=== PATIENT | female | born 1940 | race Caucasian/White ===

== ENCOUNTER 2021-01-14 14:53 | Inpatient (IN) ==
[2021-01-14] MEDS ORDERED: MORPHINE 2 MG/1 ML SYRINGE IV STA (16:02)
[2021-01-14] MEDS ORDERED: ONDANSETRON 4 MG/2 ML VIAL IV STA (16:02)
[2021-01-14] MEDS ORDERED: ONDANSETRON 4 MG/2 ML VIAL IV PRN (16:08)
[2021-01-14] MEDS ORDERED: MORPHINE 2 MG/1 ML SYRINGE IV PRN (16:08)
[2021-01-14] MEDS ORDERED: cloNIDine 0.1 MG TABLET PO PRN (16:13)
[2021-01-14 16:40] LABS: Basophils % 0.2 % (0.0-0.8); Eosinophils % 0.3 % (0.00-10.9); Hematocrit 42.3 VOL% (35.7-47.0); Hemoglobin 13.3 GM/DL (12.0-16.0); Immature Granulocytes % 0.6 %; Immature Granulocytes Absolute 0.06 #; Lymphocytes # 0.6 10*3/uL (1.4-4.0); Lymphocytes % 5.7 % (21.3-54.2); Mean Corpuscular HGB Conc 31.4 GM/DL (32-36); Mean Corpuscular Volume 101.4 FL (87-102); Mean Platelet Volume 9.2 FL (9.6-12.0); Monocytes % 4.6 % (1.7-12.7); Neutrophils % 88.6 % (38.7-73.9); Platelet Count 181 T/CUMM (130-400); Red Blood Count 4.17 MC/CUMM (3.8-5.5); Red Cell Distribution Width 13.4 % (9.3-17.3); White Blood Count 9.8 T/CUMM (4-12)
[2021-01-14 16:51] LABS: PT Patient Result 10.9 SECS (10.5-12.0); Partial Thromboplastin Time 26.4 SECS (23.9-33.8)
[2021-01-14 16:57] LABS: Calcium 9.1 MG/DL (8.5-10.1); Potassium 4.1 MMOL/L (3.5-5.1)
[2021-01-14] MEDS: SODIUM CHLORIDE 0.45% 1,000 ML IV SCH (18:35)
[2021-01-14] MEDS: MAGNESIUM OXIDE 400 MG TABLET PO SCH (21:57)
[2021-01-14] MEDS: MELATONIN 3 MG TABLET PO PRN (21:57)
[2021-01-14] MEDS: DOCUSATE SODIUM 100 MG CAPSULE PO SCH (21:57)
[2021-01-14] MEDS: DILTIAZEM CD 240 MG CAPSULE PO SCH (21:57)
[2021-01-14] MEDS: ASPIRIN EC 81 MG TABLET PO SCH (21:57)
[2021-01-14] MEDS: SIMVASTATIN 10 MG TABLET PO SCH (21:57)
[2021-01-14] MEDS: LATANOPROST 0.005% OPH SOLN 2.5 ML BOTTLE BOTH EYES SCH (21:58)
[2021-01-14] MEDS: BRIMONIDINE/TIMOLOL OPH SOLN 5 ML BOTTLE BOTH EYES SCH (21:58)
[2021-01-14] MEDS: ENOXAPARIN 30 MG/0.3 ML SYRINGE SUBCUT SCH (22:02)
[2021-01-15] MEDS: SODIUM CHLORIDE 0.45% 1,000 ML IV SCH ×3 (05:46→18:39)
[2021-01-15] MEDS: LEVOTHYROXINE 88 MCG TABLET PO SCH (07:36)
[2021-01-15] MEDS ORDERED: FAMOTIDINE 20 MG TABLET PO PRN (09:18)
[2021-01-15] MEDS: MAGNESIUM OXIDE 400 MG TABLET PO SCH ×2 (09:34→22:08)
[2021-01-15] MEDS: DOCUSATE SODIUM 100 MG CAPSULE PO SCH ×2 (09:34→22:08)
[2021-01-15] MEDS: CARBIDOPA/LEVODOPA 25-100 MG TABLET PO SCH ×4 (09:34→22:06)
[2021-01-15] MEDS: PANTOPRAZOLE 40 MG TABLET PO SCH (09:34)
[2021-01-15] MEDS: CYANOCOBALAMIN 500 MCG TABLET PO SCH (09:34)
[2021-01-15] MEDS: MULTIVITAMIN (CENTRUM) TABLET PO SCH (09:34)
[2021-01-15] MEDS: MELOXICAM 7.5 MG TABLET PO SCH (09:34)
[2021-01-15] MEDS: amLODIPine 10 MG TABLET PO SCH (09:34)
[2021-01-15] MEDS: FUROSEMIDE 20 MG TABLET PO SCH (09:34)
[2021-01-15] MEDS: BRIMONIDINE/TIMOLOL OPH SOLN 5 ML BOTTLE BOTH EYES SCH ×2 (09:35→22:11)
[2021-01-15] MEDS: NEBIVOLOL 10 MG TABLET PO SCH (09:35)
[2021-01-15] MEDS: ACETAMINOPHEN 325 MG TABLET PO PRN (13:47)
[2021-01-15] MEDS: DILTIAZEM CD 240 MG CAPSULE PO SCH (22:04)
[2021-01-15] MEDS: SIMVASTATIN 10 MG TABLET PO SCH (22:08)
[2021-01-15] MEDS: ASPIRIN EC 81 MG TABLET PO SCH (22:09)
[2021-01-15] MEDS: ENOXAPARIN 30 MG/0.3 ML SYRINGE SUBCUT SCH (22:10)
[2021-01-15] MEDS: LATANOPROST 0.005% OPH SOLN 2.5 ML BOTTLE BOTH EYES SCH (22:11)
[2021-01-16] MEDS: LEVOTHYROXINE 88 MCG TABLET PO SCH (06:17)
[2021-01-16] MEDS: SODIUM CHLORIDE 0.45% 1,000 ML IV SCH ×3 (06:33→18:48)
[2021-01-16 06:59] LABS: Basophils % 0.4 % (0.0-0.8); Eosinophils # 0.2 10*3/uL (0.0-0.87); Eosinophils % 3.3 % (0.00-10.9); Hematocrit 30.1 VOL% (35.7-47.0); Immature Granulocytes % 0.5 %; Immature Granulocytes Absolute 0.03 #; Lymphocytes # 1.1 10*3/uL (1.4-4.0); Lymphocytes % 19.8 % (21.3-54.2); Mean Corpuscular HGB Conc 31.9 GM/DL (32-36); Mean Corpuscular Volume 100.3 FL (87-102); Mean Platelet Volume 9.8 FL (9.6-12.0); Monocytes % 10.3 % (1.7-12.7); Neutrophils % 65.7 % (38.7-73.9); Red Cell Distribution Width 13.3 % (9.3-17.3)
[2021-01-16 07:01] LABS: Hemoglobin 9.6 GM/DL (12.0-16.0); Platelet Count 125 T/CUMM (130-400); White Blood Count 5.5 T/CUMM (4-12)
[2021-01-16] MEDS: CYANOCOBALAMIN 500 MCG TABLET PO SCH (09:06)
[2021-01-16] MEDS: DOCUSATE SODIUM 100 MG CAPSULE PO SCH ×2 (09:06→21:52)
[2021-01-16] MEDS: FUROSEMIDE 20 MG TABLET PO SCH (09:06)
[2021-01-16] MEDS: PANTOPRAZOLE 40 MG TABLET PO SCH (09:06)
[2021-01-16] MEDS: amLODIPine 10 MG TABLET PO SCH (09:06)
[2021-01-16] MEDS: MELOXICAM 7.5 MG TABLET PO SCH (09:07)
[2021-01-16] MEDS: MAGNESIUM OXIDE 400 MG TABLET PO SCH ×2 (09:07→21:52)
[2021-01-16] MEDS: NEBIVOLOL 10 MG TABLET PO SCH (09:07)
[2021-01-16] MEDS: MULTIVITAMIN (CENTRUM) TABLET PO SCH (09:07)
[2021-01-16] MEDS: CLOPIDOGREL 75 MG TABLET PO SCH (09:07)
[2021-01-16] MEDS: CARBIDOPA/LEVODOPA 25-100 MG TABLET PO SCH ×4 (09:07→21:51)
[2021-01-16] MEDS: BRIMONIDINE/TIMOLOL OPH SOLN 5 ML BOTTLE BOTH EYES SCH ×2 (09:07→21:50)
[2021-01-16] MEDS: ACETAMINOPHEN 325 MG TABLET PO PRN (12:12)
[2021-01-16] MEDS: LATANOPROST 0.005% OPH SOLN 2.5 ML BOTTLE BOTH EYES SCH (21:50)
[2021-01-16] MEDS: SIMVASTATIN 10 MG TABLET PO SCH (21:51)
[2021-01-16] MEDS: ASPIRIN EC 81 MG TABLET PO SCH (21:52)
[2021-01-16] MEDS: MELATONIN 3 MG TABLET PO PRN (21:52)
[2021-01-16] MEDS: DILTIAZEM CD 240 MG CAPSULE PO SCH (21:52)
[2021-01-16] MEDS: ENOXAPARIN 30 MG/0.3 ML SYRINGE SUBCUT SCH (21:53)
[2021-01-17] MEDS: ACETAMINOPHEN 325 MG TABLET PO PRN (02:00)
[2021-01-17] MEDS: LEVOTHYROXINE 88 MCG TABLET PO SCH (06:08)
[2021-01-17] MEDS: SODIUM CHLORIDE 0.45% 1,000 ML IV SCH (06:12)
[2021-01-17 08:15] LABS: Basophils % 0.3 % (0.0-0.8); Eosinophils # 0.2 10*3/uL (0.0-0.87); Eosinophils % 3.2 % (0.00-10.9); Hematocrit 33.1 VOL% (35.7-47.0); Hemoglobin 10.4 GM/DL (12.0-16.0); Immature Granulocytes % 0.5 %; Immature Granulocytes Absolute 0.03 #; Lymphocytes # 0.9 10*3/uL (1.4-4.0); Lymphocytes % 14.4 % (21.3-54.2); Mean Corpuscular HGB Conc 31.4 GM/DL (32-36); Mean Corpuscular Volume 101.5 FL (87-102); Mean Platelet Volume 9.8 FL (9.6-12.0); Monocytes % 8.8 % (1.7-12.7); Neutrophils % 72.8 % (38.7-73.9); Platelet Count 157 T/CUMM (130-400); Red Blood Count 3.26 MC/CUMM (3.8-5.5); Red Cell Distribution Width 13.2 % (9.3-17.3); White Blood Count 5.9 T/CUMM (4-12)
[2021-01-17 08:41] LABS: Band Neutrophils 1 % (0-10); Eosinophils 3 % (0-10); Hypochromasia 1+; Lymphocytes 13 % (20-55); Macrocytosis Slight; Segmented Neutrophils 79 % (50-85); Total Cells Counted 100
[2021-01-17 08:42] LABS: Platelet Estimate Adequate
[2021-01-17] MEDS ORDERED: TUBERCULIN SKIN TEST 0.1 ML SYRINGE INTRADERM ONE (10:00)
[2021-01-17] MEDS: MULTIVITAMIN (CENTRUM) TABLET PO SCH (10:16)
[2021-01-17] MEDS: NEBIVOLOL 10 MG TABLET PO SCH (10:16)
[2021-01-17] MEDS: MELOXICAM 7.5 MG TABLET PO SCH (10:17)
[2021-01-17] MEDS: CARBIDOPA/LEVODOPA 25-100 MG TABLET PO SCH ×4 (10:17→20:40)
[2021-01-17] MEDS: MAGNESIUM OXIDE 400 MG TABLET PO SCH ×2 (10:17→20:40)
[2021-01-17] MEDS: FUROSEMIDE 20 MG TABLET PO SCH (10:17)
[2021-01-17] MEDS: PANTOPRAZOLE 40 MG TABLET PO SCH (10:17)
[2021-01-17] MEDS: BRIMONIDINE/TIMOLOL OPH SOLN 5 ML BOTTLE BOTH EYES SCH ×2 (10:17→20:40)
[2021-01-17] MEDS: DOCUSATE SODIUM 100 MG CAPSULE PO SCH ×2 (10:17→20:40)
[2021-01-17] MEDS: CYANOCOBALAMIN 500 MCG TABLET PO SCH (10:17)
[2021-01-17] MEDS: amLODIPine 10 MG TABLET PO SCH (10:17)
[2021-01-17] MEDS: DILTIAZEM CD 240 MG CAPSULE PO SCH (20:39)
[2021-01-17] MEDS: ASPIRIN EC 81 MG TABLET PO SCH (20:40)
[2021-01-17] MEDS: SIMVASTATIN 10 MG TABLET PO SCH (20:40)
[2021-01-17] MEDS: MELATONIN 3 MG TABLET PO PRN (20:40)
[2021-01-17] MEDS: LATANOPROST 0.005% OPH SOLN 2.5 ML BOTTLE BOTH EYES SCH (20:41)
[2021-01-17] MEDS: ENOXAPARIN 30 MG/0.3 ML SYRINGE SUBCUT SCH (20:41)
[2021-01-18] MEDS: LEVOTHYROXINE 88 MCG TABLET PO SCH (05:36)
[2021-01-18] MEDS: CLOPIDOGREL 75 MG TABLET PO SCH (09:25)
[2021-01-18] MEDS: MULTIVITAMIN (CENTRUM) TABLET PO SCH (09:25)
[2021-01-18] MEDS: CYANOCOBALAMIN 500 MCG TABLET PO SCH (09:25)
[2021-01-18] MEDS: NEBIVOLOL 10 MG TABLET PO SCH (09:25)
[2021-01-18] MEDS: DOCUSATE SODIUM 100 MG CAPSULE PO SCH (09:25)
[2021-01-18] MEDS: MAGNESIUM OXIDE 400 MG TABLET PO SCH (09:25)
[2021-01-18] MEDS: FUROSEMIDE 20 MG TABLET PO SCH (09:26)
[2021-01-18] MEDS: MELOXICAM 7.5 MG TABLET PO SCH (09:26)
[2021-01-18] MEDS: CARBIDOPA/LEVODOPA 25-100 MG TABLET PO SCH (09:26)
[2021-01-18] MEDS: PANTOPRAZOLE 40 MG TABLET PO SCH (09:26)
[2021-01-18] MEDS: amLODIPine 10 MG TABLET PO SCH (09:26)
[2021-01-18] MEDS: BRIMONIDINE/TIMOLOL OPH SOLN 5 ML BOTTLE BOTH EYES SCH (10:31)
[2021-01-18 11:07] VITALS: BP 137/40
[2021-01-21] MEDS ORDERED: ERGOCALCIFEROL 50,000 UNIT CAPSULE PO SCH (09:00)
== END 2021-01-18 11:27 | disposition swing bed (61) | DRG 563 ==
LOC: EDBD → EDUNIT# → N.ED 14:53 → N.EDINP 14:53 → N.3E 18:41
PROVIDERS: ADMIT Family Medicine; ATTEND Family Medicine

== ENCOUNTER 2021-02-08 11:01 | Inpatient (IN) ==
[2021-02-08] MEDS ORDERED: TRANEXAMIC ACID 1,000 MG in SODIUM CHLORIDE 0.9% 100 ML IV ONE (11:50)
[2021-02-08 12:34] LABS: Basophils # 0.1 10*3/uL (0.0-0.2); Basophils % 0.5 % (0.0-0.8); Eosinophils # 0.4 10*3/uL (0.0-0.87); Eosinophils % 3.7 % (0.00-10.9); Lymphocytes # 1.3 10*3/uL (1.4-4.0); Lymphocytes % 13.2 % (21.3-54.2); Mean Corpuscular HGB Conc 30.8 GM/DL (32-36); Mean Corpuscular Volume 101.2 FL (87-102); Mean Platelet Volume 8.9 FL (9.6-12.0); Monocytes % 8.6 % (1.7-12.7); Platelet Count 302 T/CUMM (130-400); Red Blood Count 2.57 MC/CUMM (3.8-5.5); Red Cell Distribution Width 14.6 % (9.3-17.3); White Blood Count 9.8 T/CUMM (4-12)
[2021-02-08 12:43] LABS: PT Patient Result 11.4 SECS (10.5-12.0); Partial Thromboplastin Time 27.1 SECS (23.9-33.8)
[2021-02-08 13:05] LABS: Calcium 7.7 MG/DL (8.5-10.1); Potassium 4.6 MMOL/L (3.5-5.1)
[2021-02-08] MEDS ORDERED: MORPHINE 2 MG/1 ML SYRINGE IV PRN (13:50)
[2021-02-08] MEDS ORDERED: ONDANSETRON 4 MG/2 ML VIAL IV PRN (13:50)
[2021-02-08] MEDS ORDERED: ALBUTEROL 2.5 MG/3 ML NEB RESP TX PRN (13:50)
[2021-02-08 15:07] LABS: Hematocrit 23.9 VOL% (35.7-47.0); Hemoglobin 7.4 GM/DL (12.0-16.0)
[2021-02-08] MEDS: PANTOPRAZOLE 40 MG VIAL IV SCH ×2 (15:12→21:30)
[2021-02-08] MEDS: LACTATED RINGERS 1,000 ML IV SCH ×2 (17:12→17:33)
[2021-02-08 20:12] LABS: Hemoglobin 7.5 GM/DL (12.0-16.0)
[2021-02-09 02:01] LABS: Hematocrit 18.4 VOL% (35.7-47.0)
[2021-02-09 02:14] LABS: Hemoglobin 5.7 GM/DL (12.0-16.0)
[2021-02-09] MEDS ORDERED: SODIUM CHLORIDE 0.9% 1,000 ML IV PRN (02:20)
[2021-02-09] MEDS: LACTATED RINGERS 1,000 ML IV SCH ×3 (02:28→21:13)
[2021-02-09] MEDS: PANTOPRAZOLE 40 MG VIAL IV SCH ×2 (08:39→21:08)
[2021-02-09 09:01] LABS: Basophils % 0.4 % (0.0-0.8); Eosinophils # 0.3 10*3/uL (0.0-0.87); Eosinophils % 2.9 % (0.00-10.9); Hematocrit 30.2 VOL% (35.7-47.0); Immature Granulocytes % 1.2 %; Immature Granulocytes Absolute 0.12 #; Lymphocytes # 1.3 10*3/uL (1.4-4.0); Lymphocytes % 12.6 % (21.3-54.2); Mean Corpuscular HGB Conc 32.5 GM/DL (32-36); Mean Platelet Volume 8.9 FL (9.6-12.0); NRBC # 0.02 10*3/uL; Neutrophils % 74.9 % (38.7-73.9); Platelet Count 218 T/CUMM (130-400); White Blood Count 10.4 T/CUMM (4-12)
[2021-02-09 09:10] LABS: Hemoglobin 9.8 GM/DL (12.0-16.0); Red Blood Count 3.32 MC/CUMM (3.8-5.5)
[2021-02-09 09:40] LABS: Alanine Aminotransferase < 6 U/L (13-56); Albumin 2.1 G/DL (3.4-5.0); Alkaline Phosphatase 119 U/L (45-117); Aspartate Amino Transferase 10 U/L (0-37); Blood Urea Nitrogen 38 MG/DL (7-18); Calcium 7.6 MG/DL (8.5-10.1); Carbon Dioxide 22 MMOL/L (21-32); Estimated Glom Filtration Rate 44 ML/MIN; Glucose 106 MG/DL (74-106); Osmolality,Calculated 281.8 MOS/KG (273-304); Potassium 4.2 MMOL/L (3.5-5.1); Sodium 137 MMOL/L (136-145); Total Protein 5.2 G/DL (6.4-8.2)
[2021-02-09] MEDS: NEBIVOLOL 10 MG TABLET PO SCH (10:43)
[2021-02-09] MEDS: CARBIDOPA/LEVODOPA 25-100 MG TABLET PO SCH ×3 (14:07→21:07)
[2021-02-09 14:14] LABS: Hematocrit 28.2 VOL% (35.7-47.0); Hemoglobin 9.2 GM/DL (12.0-16.0)
[2021-02-09 19:56] LABS: Hemoglobin 8.5 GM/DL (12.0-16.0)
[2021-02-09] MEDS ORDERED: MELATONIN 3 MG TABLET PO PRN (20:00)
[2021-02-10 02:39] LABS: Basophils % 0.4 % (0.0-0.8); Eosinophils # 0.2 10*3/uL (0.0-0.87); Eosinophils % 2.1 % (0.00-10.9); Hematocrit 27.9 VOL% (35.7-47.0); Hemoglobin 9.1 GM/DL (12.0-16.0); Immature Granulocytes % 1.5 %; Immature Granulocytes Absolute 0.16 #; Lymphocytes # 1.1 10*3/uL (1.4-4.0); Lymphocytes % 9.7 % (21.3-54.2); Mean Corpuscular HGB Conc 32.6 GM/DL (32-36); Mean Corpuscular Volume 91.5 FL (87-102); Mean Platelet Volume 8.6 FL (9.6-12.0); Monocytes % 7.9 % (1.7-12.7); NRBC # 0.03 10*3/uL; Neutrophils % 78.4 % (38.7-73.9); Platelet Count 180 T/CUMM (130-400); Red Blood Count 3.05 MC/CUMM (3.8-5.5); Red Cell Distribution Width 19.1 % (9.3-17.3); White Blood Count 10.8 T/CUMM (4-12)
[2021-02-10 03:07] LABS: Alanine Aminotransferase < 6 U/L (13-56); Alkaline Phosphatase 117 U/L (45-117); Aspartate Amino Transferase 10 U/L (0-37); Blood Urea Nitrogen 29 MG/DL (7-18); Calcium 7.9 MG/DL (8.5-10.1); Carbon Dioxide 23 MMOL/L (21-32); Estimated Glom Filtration Rate 62 ML/MIN; Glucose 98 MG/DL (74-106); Osmolality,Calculated 280.7 MOS/KG (273-304); Sodium 138 MMOL/L (136-145); Total Protein 4.9 G/DL (6.4-8.2)
[2021-02-10] MEDS ORDERED: SODIUM PHOSPHATE ENEMA 133 ML BOTTLE RECTAL ONE (06:00)
[2021-02-10] MEDS ORDERED: ONDANSETRON 4 MG/2 ML VIAL ONE (07:56)
[2021-02-10] MEDS: LACTATED RINGERS 1,000 ML IV SCH (07:58)
[2021-02-10] MEDS ORDERED: propofoL 200 MG/20 ML VIAL IV ONE (08:24)
[2021-02-10] MEDS ORDERED: ETOMIDATE 20 MG/10 ML VIAL IV ONE (08:24)
[2021-02-10] MEDS ORDERED: LIDOCAINE 2% 5 ML VIAL ONE (08:24)
[2021-02-10] MEDS: NEBIVOLOL 10 MG TABLET PO SCH (09:38)
[2021-02-10] MEDS: CARBIDOPA/LEVODOPA 25-100 MG TABLET PO SCH ×4 (09:39→21:10)
[2021-02-10] MEDS: PANTOPRAZOLE 40 MG VIAL IV SCH ×2 (09:39→21:21)
[2021-02-10 10:09] LABS: Hematocrit 29.7 VOL% (35.7-47.0); Hemoglobin 9.6 GM/DL (12.0-16.0)
[2021-02-10] MEDS ORDERED: ACETAMINOPHEN 325 MG TABLET PO PRN (15:28)
[2021-02-10] MEDS ORDERED: CYANOCOBALAMIN 1000 MCG/1 ML VIAL IM SCH (15:30)
[2021-02-10 15:48] LABS: % Iron Saturation 7.9 % (18-50)
[2021-02-10 15:54] LABS: Folate 14.18 NG/ML (5.38-24.0)
[2021-02-10] MEDS ORDERED: CARBIDOPA/LEVODOPA 25-100 MG TABLET PO SCH (17:00)
[2021-02-10] MEDS ORDERED: DILTIAZEM CD 240 MG CAPSULE PO SCH (21:00)
[2021-02-10] MEDS ORDERED: SIMVASTATIN 10 MG TABLET PO SCH (21:00)
[2021-02-10] MEDS ORDERED: LATANOPROST 0.005% OPH SOLN 2.5 ML BOTTLE BOTH EYES SCH (21:00)
[2021-02-10] MEDS: BRIMONIDINE/TIMOLOL OPH SOLN 5 ML BOTTLE BOTH EYES SCH (22:50)
[2021-02-11] MEDS ORDERED: LEVOTHYROXINE 88 MCG TABLET PO SCH (06:30)
[2021-02-11 06:53] LABS: Basophils % 0.4 % (0.0-0.8); Eosinophils # 0.2 10*3/uL (0.0-0.87); Eosinophils % 2.9 % (0.00-10.9); Hematocrit 26.3 VOL% (35.7-47.0); Hemoglobin 8.4 GM/DL (12.0-16.0); Immature Granulocytes % 1.3 %; Lymphocytes # 0.7 10*3/uL (1.4-4.0); Lymphocytes % 9.8 % (21.3-54.2); Mean Corpuscular HGB Conc 31.9 GM/DL (32-36); Mean Corpuscular Volume 94.3 FL (87-102); Mean Platelet Volume 9.1 FL (9.6-12.0); Monocytes % 7.2 % (1.7-12.7); Neutrophils % 78.4 % (38.7-73.9); Platelet Count 184 T/CUMM (130-400); Red Blood Count 2.79 MC/CUMM (3.8-5.5); Red Cell Distribution Width 18.6 % (9.3-17.3); White Blood Count 7.5 T/CUMM (4-12)
[2021-02-11 07:15] LABS: Band Neutrophils 2 % (0-10); Eosinophils 1 % (0-10); Hypochromasia Slight; Lymphocytes 6 % (20-55); Platelet Estimate Normal; Segmented Neutrophils 87 % (50-85); Total Cells Counted 100
[2021-02-11 07:17] LABS: Alanine Aminotransferase < 6 U/L (13-56); Albumin 1.9 G/DL (3.4-5.0); Alkaline Phosphatase 110 U/L (45-117); Aspartate Amino Transferase 10 U/L (0-37); Blood Urea Nitrogen 21 MG/DL (7-18); Calcium 7.5 MG/DL (8.5-10.1); Carbon Dioxide 22 MMOL/L (21-32); Estimated Glom Filtration Rate 72 ML/MIN; Glucose 92 MG/DL (74-106); Osmolality,Calculated 283.3 MOS/KG (273-304); Potassium 3.7 MMOL/L (3.5-5.1); Sodium 141 MMOL/L (136-145); Total Protein 4.9 G/DL (6.4-8.2)
[2021-02-11 07:18] LABS: Risk Ratio 2.63; VLDL Cholesterol 16.8 MG/DL
[2021-02-11] MEDS ORDERED: ERGOCALCIFEROL 50,000 UNIT CAPSULE PO SCH (09:00)
[2021-02-11] MEDS ORDERED: FERROUS SULFATE 325 MG TABLET PO SCH (09:00)
[2021-02-11] MEDS ORDERED: CYANOCOBALAMIN 500 MCG TABLET PO SCH (09:00)
[2021-02-11] MEDS: LACTATED RINGERS 1,000 ML IV SCH ×2 (09:32→09:39)
[2021-02-11] MEDS: BRIMONIDINE/TIMOLOL OPH SOLN 5 ML BOTTLE BOTH EYES SCH (09:34)
[2021-02-11] MEDS: NEBIVOLOL 10 MG TABLET PO SCH (09:36)
[2021-02-11] MEDS: CARBIDOPA/LEVODOPA 25-100 MG TABLET PO SCH ×2 (09:37→15:31)
[2021-02-11] MEDS: PANTOPRAZOLE 40 MG VIAL IV SCH (09:39)
[2021-02-11 12:57] VITALS: BP 111/37
[2021-02-17] MEDS ORDERED: ERGOCALCIFEROL 50,000 UNIT CAPSULE PO SCH (09:00)
== END 2021-02-11 16:11 | disposition swing bed (61) | DRG 813 ==
LOC: EDUNIT# → EDBD → N.ED 11:01 → N.EDINP 13:44 → SUATTDRO 13:44 → N.ICU 16:59 → N.TELEN 02-09 14:53
PROVIDERS: ADMIT Internal Medicine; ATTEND Internal Medicine